=== PATIENT | female | born 1995 | race Caucasian/White ===

== ENCOUNTER 2021-05-06 06:45 | Inpatient (IN) | payer OTHER ==
[2021-05-06] MEDS ORDERED: AMPICILLIN SODIUM 2 GM VIAL ONE (08:51)
[2021-05-06 09:16] LABS: BASO % 0.2 % (0-2.0); EOS % 0.3 % (0-4.5); HEMATOCRIT 30.1 % (32.4-45.2); HEMOGLOBIN 10.1 GM/dL (10.7-15.3); LYMPH % 10.2 % (8-40); MCH 26.6 pg (25.7-33.7); MCHC 33.6 g/dl (32.0-36.0); MEAN CELL VOLUME 79.3 fl (80-96); MEAN PLT VOLUME 7.8 fl (7.5-11.1); MONO % 5.5 % (3.8-10.2); NEUT % 83.8 % (42.8-82.8); PLATELET COUNT 289 10^3/uL (134-434); RDW 14.5 % (11.6-15.6)
[2021-05-06 09:24] LABS: INR 0.94 (0.83-1.09)
[2021-05-06 09:27] LABS: ACTIVATED PTT 26.1 SECONDS (25.2-36.5)
[2021-05-06 09:28] VITALS: BMI 39.6
[2021-05-06 09:31] LABS: CALCIUM 8.6 mg/dL (8.5-10.1)
[2021-05-06 09:32] LABS: BLOOD UREA NITROGEN 13.4 mg/dL (7-18)
[2021-05-06 09:35] LABS: CREATININE 0.6 mg/dL (0.55-1.3)
[2021-05-06] MEDS ORDERED: PCA PUMP NR ONE ×2 (09:41→14:16)
[2021-05-06] MEDS ORDERED: AMPICILLIN - 2 GM in SODIUM CHLORIDE 100 ML IVPB ONE (09:42)
[2021-05-06] MEDS ORDERED: ELECTROLYTE-148 SOLN 1,000 ML IV SCH (09:45)
[2021-05-06] MEDS: FENTANYL/BUPIVACAINE/NS/PF - PCEA - 50 ML DISP.SYRIN EP SCH ×2 (10:15→14:17)
[2021-05-06] MEDS ORDERED: FENTANYL/BUPIVACAINE/NS/PF - PCEA - 50 ML DISP.SYRIN EP ONE ×2 (10:18→14:16)
[2021-05-06] MEDS ORDERED: OXYTOCIN 30 UNITS in 0.9% NS 30 UNIT/500 ML INFUS.BAG IVPB ONE (11:57)
[2021-05-06] MEDS ORDERED: OXYTOCIN 30 UNITS in 0.9% NS 30 UNIT/500 ML INFUS.BAG IVPB SCH (12:00)
[2021-05-06] MEDS ORDERED: NALOXONE HCL 0.4 MG/ML VIAL IVPUSH PRN (12:17)
[2021-05-06] MEDS ORDERED: AMPICILLIN SODIUM 1 GM VIAL ONE ×2 (12:50→16:25)
[2021-05-06] MEDS: AMPICILLIN - 1 GM in SODIUM CHLORIDE 100 ML IVPB SCH ×2 (12:53→16:40)
[2021-05-06] MEDS ORDERED: AMPICILLIN - 1 GM in SODIUM CHLORIDE 100 ML IVPB SCH (13:43)
[2021-05-06] MEDS ORDERED: LIDOCAINE HCL 1% PRESERVATIVE FREE - 30ML VIAL ONE (15:25)
[2021-05-06] MEDS ORDERED: OXYTOCIN 20 UNITS in 0.9% NS 20 UNIT/1,000 ML INFUS.BAG IV ONE (15:25)
[2021-05-06] MEDS ORDERED: ACETAMINOPHEN 1000 MG/100 ML VIAL IVPB ONE (16:09)
[2021-05-06] MEDS ORDERED: ACETAMINOPHEN INJECTION 100 ML IVPB ONE (16:13)
[2021-05-06] MEDS ORDERED: WITCH HAZEL 50% (TUCKS) 40 PAD/JAR PAD TP PRN (17:34)
[2021-05-06] MEDS ORDERED: BENZOCAINE 28 GM HEMORRHOIDAL OINTMENT TP PRN (17:34)
[2021-05-06] MEDS ORDERED: BISACODYL 10 MG SUPP.RECT RC PRN (17:34)
[2021-05-06] MEDS ORDERED: BENZOCAINE 20% 57 GM BOTTLE TP PRN (17:34)
[2021-05-06] MEDS ORDERED: ACETAMINOPHEN 325 MG TABLET (FP) PO PRN (17:34)
[2021-05-06] MEDS ORDERED: METHYLERGONOVINE MALEATE 0.2 MG/1 ML AMP IM PRN (17:34)
[2021-05-06] MEDS ORDERED: OXYTOCIN 20 UNITS in 0.9% NS 20 UNIT/1,000 ML INFUS.BAG IV SCH (17:45)
[2021-05-06 18:11] LABS: CORD PCO2 61.9 mmHg (30-78); CORD pH 7.188 (7.14-7.44)
[2021-05-06 18:12] LABS: CORD BASE EXCESS -3.6 mmol/L (0-2); CORD HCO3 22.9 mmHg (20-29); CORD PCO2 46.2 mmHg (30-78); CORD pH 7.313 (7.14-7.44)
[2021-05-07] MEDS: IBUPROFEN 600 MG TABLET (FP) PO PRN ×2 (00:32→09:48)
[2021-05-07 08:49] LABS: BASO % 0.6 % (0-2.0); HEMATOCRIT 25.8 % (32.4-45.2); HEMOGLOBIN 8.6 GM/dL (10.7-15.3); LYMPH % 18.5 % (8-40); MCH 26.4 pg (25.7-33.7); MCHC 33.4 g/dl (32.0-36.0); MEAN CELL VOLUME 79.2 fl (80-96); MEAN PLT VOLUME 7.7 fl (7.5-11.1); MONO % 7.6 % (3.8-10.2); NEUT % 72.3 % (42.8-82.8); PLATELET COUNT 231 10^3/uL (134-434); RBC 3.26 M/mm3 (3.60-5.2); RDW 14.4 % (11.6-15.6); WHITE BLOOD COUNT 13.1 K/mm3 (4.0-10.0)
[2021-05-07] MEDS: FERROUS SO4 325 MG TABLET (FP) PO SCH ×2 (09:00→17:47)
[2021-05-07] MEDS: PRENATAL VITAMINS W/ FOLIC ACID TABLET (FP) PO SCH (09:49)
[2021-05-07] MEDS ORDERED: SENNOSIDES/DOCUSATE COMBO (SENNA PLUS) TABLET (UD) PO PRN (22:00)
[2021-05-08] MEDS: IBUPROFEN 600 MG TABLET (FP) PO PRN (08:48)
[2021-05-08] MEDS: FERROUS SO4 325 MG TABLET (FP) PO SCH (08:48)
[2021-05-08] MEDS: PRENATAL VITAMINS W/ FOLIC ACID TABLET (FP) PO SCH (09:14)
[2021-05-08 11:48] VITALS: BP 91/62; PULSE 93; TEMP 98
== END 2021-05-08 14:35 | disposition home or self-care (01) | DRG 560 ==
LOC: JDEL 06:45 → JLDR 09:08 → J3W 19:51
PROVIDERS: ADMIT Obstetrics & Gynecology; ATTEND Obstetrics & Gynecology
PROC: 10E0XZZ Delivery of Products of Conception, External Approach (ICD-10-PCS; principal; 2021-05-06)
PROC: 0W8NXZZ Division of Female Perineum, External Approach (ICD-10-PCS; 2021-05-06)
DX: O70.0 First degree perineal laceration during delivery (principal); O99.824 Streptococcus B carrier state complicating childbirth; O99.214 Obesity complicating childbirth; E66.9 Obesity, unspecified; Z3A.39 39 weeks gestation of pregnancy; Z37.0 Single live birth
CPT/HCPCS: 36415; 36600; 59409; 80048; 82803; 85025; 85610; 85730; 86780; 86850; 86900; 86901; C9803; J0131; U0003; U0005